=== PATIENT | male | born 2000 | race Caucasian/White ===

== ENCOUNTER 2024-03-23 19:29 | Emergency (ER) | payer SELFPAY ==
[~2024-03-23] VITALS: Ht 182.9 cm; Wt 91.0 kg
[2024-03-23 19:41] VITALS: BP 109/67; PULSE 73; RESP 18; TEMP 97.3; O2SAT 94
== END 2024-03-23 20:51 | disposition left against medical advice (07) ==
LOC: ER 19:29
DX: R10.9 Unspecified abdominal pain (principal); Z53.21 Procedure and treatment not carried out due to patient leaving prior to being seen by health care provider